=== PATIENT | male | born 1975 | race Asian ===

== ENCOUNTER → 2017-03-09 | Outpatient (CLI) | payer OTHER | END | disposition home or self-care (01) | LOC: EMPHLTH 10:47 | PROVIDERS: ATTEND Internal Medicine | DX: Z02.1 Encounter for pre-employment examination (principal); R76.11 Nonspecific reaction to tuberculin skin test without active tuberculosis | CPT/HCPCS: 86706; 86735; 86762; 86765; 86787 ==

== ENCOUNTER → 2018-03-07 | Outpatient (CLI) | payer OTHER | END | disposition home or self-care (01) | LOC: EMPHLTH 08:24 | PROVIDERS: ATTEND Internal Medicine | DX: R76.11 Nonspecific reaction to tuberculin skin test without active tuberculosis (principal) ==

== ENCOUNTER 2019-02-03 08:21 | Emergency (ER) | payer OTHER ==
[~2019-02-03] VITALS: Ht 162.6 cm; Wt 63.6 kg
[2019-02-03] MEDS ORDERED: ATOR10TA84 PO (08:25)
[2019-02-03 09:34] LABS: INFLUENZA TYPE A NEGATIVE FOR TYPE A (NEGATIVE); INFLUENZA TYPE B NEGATIVE FOR TYPE B (NEGATIVE)
[2019-02-03 09:59] VITALS: BP 146/105
== END 2019-02-03 09:59 | disposition home or self-care (01) ==
LOC: EMS 08:21
DX: J06.9 Acute upper respiratory infection, unspecified (principal); E78.00 Pure hypercholesterolemia, unspecified
CPT/HCPCS: 87804

== ENCOUNTER → 2019-06-08 | Outpatient (CLI) | payer OTHER ==
[~2019-06-08] MED LIST: ATOR10TA84 PO
[2019-06-09 15:17] LABS: RUBEOLA (MEASLES) IGG >300.0 AU/mL (Immune >29.9)
== END | disposition home or self-care (01) ==
LOC: EMPHLTH 08:01
PROVIDERS: ATTEND Internal Medicine
DX: Z02.1 Encounter for pre-employment examination (principal)
CPT/HCPCS: 86706; 86735; 86762; 86765; 86787

== ENCOUNTER → 2021-02-05 | Outpatient (CLI) | payer OTHER | END | disposition home or self-care (01) | LOC: RADMN 07:54 | PROVIDERS: ATTEND Internal Medicine | DX: R76.11 Nonspecific reaction to tuberculin skin test without active tuberculosis (principal) | CPT/HCPCS: 71045-TC ==